=== PATIENT | male | born 1945 ===

== ENCOUNTER → 2024-08-25 16:00 | Outpatient (REF) | payer OTHER, SELFPAY ==
[2024-08-26 13:59] LABS: Urine Character Clear (Clear)
== END ==
LOC: OLABSOL 16:00
PROVIDERS: ATTENDING PHYSICIAN Nurse Practitioner Adult Health
DX: N39.0 Urinary tract infection, site not specified (principal)
CPT/HCPCS: 81003; 87086

== ENCOUNTER → 2024-09-18 10:29 | Outpatient (REF) | payer OTHER, SELFPAY ==
[2024-09-18 10:56] LABS: Hematocrit 32.2 % (39.0-52.0); Hemoglobin 11.1 g/dL (13.0-18.0); Mean Corp Hgb Conc. 34.5 g/dL (33.0-37.0); Mean Corpuscular Volume 88.5 fL (80.0-94.0); Nucleated Red Blood Cells % 0 % (-); Platelet Count 194 10^3/uL (130-400); Red Cell Dist. Width 12.2 % (11.5-14.5)
[2024-09-18 11:05] LABS: Blood Urea Nitrogen 13 mg/dl (9-20); Calcium 8.8 mg/dl (8.4-10.2); Carbon Dioxide 29 mmol/L (22-30); Chloride 101 mmol/L (98-107); Glucose 69 mg/dl (70-99); Potassium 4.3 mmol/L (3.5-5.1); Sodium 134 mmol/L (135-145); eGFR 43.83
[2024-09-18 11:23] LABS: Vitamin D, 25-OH*** 42.5 ng/mL (30-80)
[2024-09-18 11:34] LABS: Glycohemoglobin (HgbA1c) 5.5 % (4.0-5.6)
[2024-09-18 11:35] LABS: TSH 0.47 uIU/ml (0.47-4.68)
[2024-09-18 11:55] LABS: Vitamin B12 658 pg/ml (239-931)
== END ==
LOC: OLABN 10:29
PROVIDERS: ATTENDING PHYSICIAN Nurse Practitioner Adult Health
DX: D51.9 Vitamin B12 deficiency anemia, unspecified (principal); E55.9 Vitamin D deficiency, unspecified; D64.9 Anemia, unspecified; E03.9 Hypothyroidism, unspecified
CPT/HCPCS: 36415; 80048; 82306; 82607; 83036; 84439; 84443; 85025

== ENCOUNTER → 2025-01-27 12:01 | Outpatient (REF) | payer OTHER, SELFPAY ==
[2025-01-27 13:16] LABS: Hematocrit 34.3 % (39.0-52.0); Hemoglobin 11.8 g/dL (13.0-18.0); Mean Corp Hgb Conc. 34.4 g/dL (33.0-37.0); Mean Corpuscular Volume 92.7 fL (80.0-94.0); Nucleated Red Blood Cells % 0 % (-); Platelet Count 199 10^3/uL (130-400); Red Cell Dist. Width 12.5 % (11.5-14.5)
[2025-01-27 16:34] LABS: Blood Urea Nitrogen 14 mg/dl (9-20); Calcium 9.2 mg/dl (8.4-10.2); Carbon Dioxide 28 mmol/L (22-30); Chloride 100 mmol/L (98-107); Glucose 72 mg/dl (70-99); Magnesium 2.1 mg/dl (1.6-2.3); Potassium 4.2 mmol/L (3.5-5.1); Sodium 136 mmol/L (135-145); eGFR 43.56
[2025-01-27 16:48] LABS: TSH 1.00 uIU/ml (0.47-4.68)
== END ==
LOC: OLABSOL 12:01
PROVIDERS: ATTENDING PHYSICIAN Nurse Practitioner Adult Health
DX: R94.6 Abnormal results of thyroid function studies (principal); E05.90 Thyrotoxicosis, unspecified without thyrotoxic crisis or storm; R79.89 Other specified abnormal findings of blood chemistry; D64.9 Anemia, unspecified
CPT/HCPCS: 36415; 80048; 83735; 84439; 84443; 85025